=== PATIENT | female | born 1955 | race African-American/Black ===

== ENCOUNTER 2019-02-17 12:49 | Emergency (ER) | payer OTHER ==
[~2019-02-17] VITALS: Ht 160 cm; Wt 98.0 kg
[2019-02-17 14:00] LABS: ABSOLUTE NEUTROPHILS 2.2 thou/uL (1.4-8.2); BASOPHILS 0.4 % (0.0-2.0); EOSINOPHILS 4.4 % (0.0-3.0); HEMATOCRIT 41.8 % (37.0-47.0); HEMOGLOBIN 13.4 gm/dL (12.0-15.0); LYMPHOCYTES 49.6 % (24.0-44.0); MCH 29.1 pg (26.0-34.0); MCHC 32.1 g/dL (28.0-37.0); MCV 90.5 fL (80.0-100.0); MONOCYTES 11.1 % (1.0-8.0); PLATELET COUNT 241 thou/uL (150-400); POLYS 34.5 % (36.0-66.0); RBC 4.61 mil/uL (4.20-5.00); RDW 14.5 % (10.5-14.5); WBC 6.5 thou/uL (4.0-11.0)
[2019-02-17 14:03] LABS: ANION GAP 10 mmol/L (7-16); BUN 18 mg/dL (7-18); CALCIUM 9.5 mg/dL (8.5-10.1); CHLORIDE 101 mmol/L (98-107); CO2 27 mmol/L (21-32); CREATININE 0.8 mg/dL (0.6-1.0); GLUCOSE 104 mg/dL (74-106); POTASSIUM 3.6 mmol/L (3.5-5.1); SODIUM 138 mmol/L (136-145)
[2019-02-17 14:14] LABS: TROPONIN-I <0.06 ng/mL (<0.06)
[2019-02-17 15:09] VITALS: BP 139/69
--- NOTE | 2019-02-18 16:57 | EKG ---
[address] [address] ELECTROCARDIOGRAM REPORT Name: BIANCA CUELLOJOSEFINA Room #: DEP Wallace#: [id number] Admission: 02/17/19 Attend Phys: Discharge: 02/17/19 Date of : 51 Report #: [id number] THIS REPORT FOR: //name// [facility] ED Test Date: 2019-02-17 Test Time: 12:55:17 Pat Name: STEPHEN CUELLO Department: Room: Gender: F [employer]: : 1955 Requested By: Myron Scanlon Order Number: [id number] MD: Segundo Caballero Measurements Intervals [place] Rate: 61 P: 21 [place]: 191 QRS: -18 QRSD: 95 T: 29 QT: 435 QTc: 439 Interpretive Statements Sinus rhythm No significant abnormality No previous ECG available for comparison Electronically Signed On 02-18-2019 16:56:53 [employer]NA[employer] by Segundo Caballero [email or web address] <ELECTRONICALLY SIGNED> By: Segundo Caballero MD, [facility] 02/18/19 [id number] Segundo Caballero MD, FACC /EPI
== END 2019-02-17 15:20 | disposition home or self-care (01) ==
LOC: ER 12:49
PROVIDERS: Emergency Medicine
DX: R07.89 Other chest pain (principal); M19.90 Unspecified osteoarthritis, unspecified site; E11.9 Type 2 diabetes mellitus without complications; Z90.710 Acquired absence of both cervix and uterus